=== PATIENT | male | born 1980 | race Caucasian/White ===

== ENCOUNTER 2022-09-08 08:20 | Outpatient (CLI) | payer OTHER, SELFPAY ==
--- NOTE | 2022-09-08 08:36 | XR_ITS ---
WS: [id number] Exam: XR cervical spine min 6V [id number] Date/Time of Exam: 09/08/2022 8:36 AM Reason For Exam: M54.2 - Cervicalgia No fracture or dislocation. Mild straightening. Mild spondylosis noted. No significant flexion or ext ension instability noted. The odontoid is intact. Normal paraspinal soft tissues. The bony neuroforam bari are patent bilaterally. XR/XR cervical spine min 6V [id number] IMPRESSION: 1. No fracture or instability. 2. Mild spondylosis. Straightening.
--- NOTE | 2022-09-08 08:36 | XR_ITS ---
WS: [id number] Exam: XR thoracic spine 3V* [id number] Date/Time of Exam: 09/08/2022 8:36 AM Reason For Exam: M54.9 - Dorsalgia, unspecified No acute fracture or dislocation. Disc spaces are preserved. Minimal spondylosis. No scoliosis. Tita l paraspinal soft tissue structures. XR/XR thoracic spine 3V* [id number] IMPRESSION: 1. Mild spondylosis otherwise unremarkable T-spine study.
== END 2022-09-08 08:21 | disposition home or self-care (01) ==
PROVIDERS: Visit Provider Family Medicine
DX: M47.892 Other spondylosis, cervical region (principal); M47.814 Spondylosis without myelopathy or radiculopathy, thoracic region
CPT/HCPCS: 72052; 72072

== ENCOUNTER 2022-10-05 06:00 | Outpatient (RCR) | payer OTHER, SELFPAY | END 2022-11-04 23:59 | disposition home or self-care (01) | LOC: TPT 06:00 | PROVIDERS: Visit Provider Family Medicine | DX: M54.2 Cervicalgia (principal); M54.9 Dorsalgia, unspecified | CPT/HCPCS: 97110; 97140; 97163 ==

== ENCOUNTER 2022-11-05 06:00 | Outpatient (RCR) | payer OTHER, SELFPAY | END 2022-12-05 23:59 | disposition home or self-care (01) | LOC: TPT 06:00 | PROVIDERS: Visit Provider Family Medicine | DX: M54.2 Cervicalgia (principal); M54.9 Dorsalgia, unspecified | CPT/HCPCS: 97110; 97140 ==

== ENCOUNTER 2022-12-06 06:00 | Outpatient (RCR) | payer OTHER, SELFPAY | END 2022-12-26 16:35 | disposition home or self-care (01) | LOC: TPT 06:00 | PROVIDERS: PCP Family Medicine; Visit Provider Family Medicine | DX: M54.2 Cervicalgia (principal); M54.9 Dorsalgia, unspecified | CPT/HCPCS: 97110; 97140 ==

== ENCOUNTER 2023-01-22 07:10 | Outpatient (CLI) | payer OTHER, SELFPAY ==
--- NOTE | 2023-01-22 07:24 | MR_ITS ---
WS: [id number] MRI CERVICAL SPINE NONCONTRAST TECHNIQUE: Sagittal T1, T2 and STIR imaging. Axial T2, gradient, and fiesta imaging. CLINICAL INFORMATION: M54.2 - Cervicalgia COMPARISON: None. FINDINGS: Straightening of the normal cervical lordosis. Cord signal is normal. No high-grade central canal kayden rowing. Incidental hemangioma C7. C2-C3: Normal. C3-C4: Mild facet arthropathy. Spinal canal and foramen are patent. C4-C5: Mild facet arthropathy. Spinal canal and foramen are patent. C5-C6: Mild disc osteophyte complex with endplate ridging. Mild facet arthropathy. Moderate LEFT bony foraminal narrowing. C6-C7: Disc osteophyte complex with endplate ridging. Moderate LEFT and no significant/RIGHT foramina l narrowing. Mild facet arthropathy. Tiny central protrusion with slight effacement of the ventral th ecal sac. C7-T1: Normal. Visualized brain stem structures: Normal. Prevertebral soft tissues: Normal. MR/MR cervical spin wo con* [id number] IMPRESSION: 1. Straightening of the normal cervical lordosis. No evidence of ligamentous i njury. No paravertebral edema. 2. Cord signal is normal. 3. Moderate bony LEFT C5-C6 bony foraminal narrowing. 4. Tiny central protrusion C6-C7 with moderate LEFT C6-C7 bony foraminal narro wing.
== END 2023-01-22 07:11 | disposition home or self-care (01) ==
PROVIDERS: PCP Family Medicine; Visit Provider Family Medicine
DX: M50.223 Other cervical disc displacement at C6-C7 level (principal)
CPT/HCPCS: 72141

== ENCOUNTER → 2023-02-15 10:08 | Outpatient (BNVA) | payer OTHER, SELFPAY | PROVIDERS: PCP Family Medicine; Referring Provider Family Medicine; Visit Provider Physician Assistant | DX: M47.26 Other spondylosis with radiculopathy, lumbar region (principal) | CPT/HCPCS: 72110 ==